=== PATIENT | male | born 1950 | race Caucasian/White ===

== ENCOUNTER 2017-12-22 11:34 | Day surgery (SDC) | payer MEDICARE, OTHER ==
[~2017-12-22 11:34] MED LIST: ACETAMINOPHEN 1,000 MG/100 ML BTL IV ONE; CEFAZOLIN 2 Gram 2 GM/50 ML BAG IVPB ONE
[2017-12-22] MEDS ORDERED: FENTANYL PF 100MCG/2ML VIAL IV ONE (11:35)
[2017-12-22] MEDS ORDERED: BUPIVACAINE 0.5% W/EPI MPF 30 ML VIAL IVP ONE (11:35)
[2017-12-22] MEDS ORDERED: MIDAZOLAM HCL 2MG/2ML VIAL IV ONE (11:35)
[2017-12-22 11:39] LABS: HEMATOCRIT 38.4 % (42.0-52.0); HEMOGLOBIN 12.5 gm/dl (14.0-18.0); MEAN CELL VOLUME 84.4 fl (81-97); MEAN CORPUSCULAR HGB CONC 32.6 g/dl (32-36); MEAN PLATELET VOLUME 9.7 fl (7.4-10.4); PLATELET COUNT 216 K/uL (130-400); RED BLOOD COUNT 4.55 M/uL (4.40-5.70); RED CELL DISTRIBUTION WIDTH 17.4 % (11.5-14.5); WHITE BLOOD COUNT W/O DIFF 8.5 K/uL (4.2-12.2)
[2017-12-22 11:52] LABS: BLOOD UREA NITROGEN 14 mg/dL (8-23); CREATININE 0.9 mg/dL (0.7-1.2); EST GLOMERULAR FILTRATION RATE > 60 mL/min; GLUCOSE,RANDOM 233 mg/dL (74-109)
[2017-12-22 11:58] LABS: MEAN CORPUSCULAR HEMOGLOBIN 27.4 pg (27-33); PLATELET ESTIMATE NORMAL (NORMAL)
--- NOTE | 2017-12-23 20:34 | Operative Note ---
DATE OF SURGERY: 12/22/2017 PREOPERATIVE DIAGNOSIS: INTERNAL DERANGEMENT OF THE RIGHT KNEE. POSTOPERATIVE DIAGNOSES: 1. GRADE 3 CHONDROMALACIA PATELLA. 2. COMPLEX SPLIT TEAR INVOLVING MOST OF THE POSTERIOR HORN OF THE MEDIAL MENISCUS. 3. GRADE 3 CHONDROMALACIA OF THE MEDIAL FEMORAL CONDYLE. 4. FRINGE TEAR INVOLVING THE POSTERIOR LATERAL CORNER OF THE LATERAL MENISCUS. PROCEDURE: 1. RIGHT KNEE ARTHROSCOPY WITH PARTIAL MEDIAL AND LATERAL MENISCECTOMIES. 2. RIGHT KNEE ARTHROSCOPY WITH CHONDROPLASTY OF THE PATELLOFEMORAL COMPARTMENT. 3. RIGHT KNEE ARTHROSCOPY WITH CHONDROPLASTY OF THE MEDIAL FEMORAL CONDYLE. STAFF SURGEON: BREANNA KHAN M.D. ANESTHESIA: SPINAL. PREPARATION: CHLORAPREP. INDIVIDUAL CONSIDERATIONS: NONE. PROCEDURE: The patient was taken to the Operating Room and placed supine on the operating table. He had a successful induction with general anesthetic. His right lower extremity was prepped and then draped in the usual fashion. The patient had a superior lateral inflow cannula placed. The skin was infiltrated with 0.5% Marcaine with Epinephrine prior. A clear effusion was drained. The knee was then inflated with normal saline. An inferior medial and an inferior lateral portal were made in a similar fashion. The arthroscope was introduced through the inferior lateral portal up into the pouch. The patellofemoral compartment showed grade 3 change on the patella with some fibrocartilage in the notch. The loose cartilage on the patella was smoothed with a shaver. Medially, he had a complex split tear involving the posterior horn of the medial meniscus and most of the posterior horn was debrided out with basket forceps and a shaver. Grade 3 changes in the medial femoral condyle just lateral to the midline centered at 45 degrees, about the size of an elongated quarter, was smoothed with a shaver but not down to bone. The cruciates were normal. Laterally, everything looked good except he had a fringe tear involving the posterior lateral corner of the lateral meniscus, which was smoothed off with a shaver. The knee was then irrigated out with saline to remove loose floating debris. Portals were closed with maynor and 20 mL of 0.5 % Marcaine with Epinephrine along with 10 mg of Morphine and 40 mg of DepoMedrol were injected into the knee and a sterile Bulkee compressive dressing was applied. The patient tolerated the procedures well. Needle and sponge counts were correct. Estimated blood loss was minimal and he was taken back to Recovery in good condition. There were no complications. JOB NUMBER: [id number] MTDD
== END 2017-12-22 16:40 | disposition home or self-care (01) ==
LOC: SUR 11:34
PROVIDERS: ATTEND Orthopaedic Surgery
DX: S83.231A Complex tear of medial meniscus, current injury, right knee, initial encounter (principal); S83.281A Other tear of lateral meniscus, current injury, right knee, initial encounter; M22.41 Chondromalacia patellae, right knee; M94.261 Chondromalacia, right knee; I10 Essential (primary) hypertension; E11.9 Type 2 diabetes mellitus without complications; Z79.4 Long term (current) use of insulin; M06.9 Rheumatoid arthritis, unspecified; N40.0 Benign prostatic hyperplasia without lower urinary tract symptoms; J44.9 Chronic obstructive pulmonary disease, unspecified
CPT/HCPCS: 29880; 01400; 80048; 85027; J3010; J0690